=== PATIENT | female | born 1950 | race Caucasian/White ===

== ENCOUNTER → 2016-04-29 | Outpatient (CLI) | payer SELFPAY ==
[~2016-04-29] MED LIST: BIPAP INH; BREO ELLIPTA 11 EACH INH; CELEXA40 MG PO; CRESTOR40 MG PO; FUROSEMIDE80 MG PO; GLUCOPHAGE1000 MG PO; HUMULIN R500 UNIT/1 SUB-Q; HYDRALAZINE HCL10 MG PO; INCRUSE ELLI62.5 MCG INH; IPRAT-ALBUT 0.5-3 ML INH; LOPRESSOR25 MG PO; MIRAPEX1.5 MG PO; NORVASC10 MG PO; PLAVIX75 MG PO; PRILOSEC20 MG PO; PROAIR HFA8.5 GM INH; TRICOR145 MG PO; TYLENOL EXTRA500 MG PO; VIRTUSSIN AC L118 ML PO; VITAMIN D2000 UNIT PO; ZESTRIL40 MG PO; [UNRECOGNIZED DRUG - OTHER] PO
--- NOTE | ~2016-04-29 | PUL ---
PATIENT'S NAME: YASSINE COX [place] AGE: 65 Y [address] ROOM: [place] [id number] LOCATION: [facility] ADMIT DATE: 04/29/2016 Pulmonary DISCHARGE DATE: FAMILY PHYSICIAN: Naty Trejo MD ATTENDING PHYSICIAN: BOB WISE NAME OF PROCEDURE: Pulmonary Function Test DATE OF PROCEDURE: April 29, 2016 TECH: ADITI Mosley REASON FOR EXAM: COPD RESULTS: 1. FVC was 2.68 liters which is 78% of predicted and low, FEV1 was 1.86 liters which is 70% of predicted and low, and FEV1/FVC was 70% and normal. The flow volume curve reveals some airflow limitation and low lung volumes. After bronchodilator administration FVC increased to 2.84 liters which is a 6% increase and FEV1 increased to 1.96 liters which is a 5% increase. FEV1/FVC was 69%. 2. DLCO was 9 with an adjusted DLCO of 10.1 which is 40% of predicted and low. 3. Total lung capacity was 5.07 liters which is 96% of predicted and normal, and residual volume was 2.22 liters which is 109% of predicted and normal. PHYSICIAN INTERPRETATION: The patient has no airflow limitation as per ATS/ERS criteria and no significant bronchodilator response. Her diffusion capacity is moderately low. There is no evidence of restrictive lung disease. He has nonspecific reduction in FEV1 and FVC which can be seen in chronic airway disease. Clinical correlation is advised. MD CRYSTAL ÁLVAREZ/johnathon /[id number] dtt: 05/01/16 1322 , BOB WISE dtd: 05/01/16 1301
== END | disposition disaster alternative care site (69) ==
LOC: GRTH 11:00
DX: J44.9 Chronic obstructive pulmonary disease, unspecified (principal)

== ENCOUNTER → 2016-05-02 | Outpatient (CLI) | payer SELFPAY | END | disposition disaster alternative care site (69) | LOC: GDIC 12:20 | DX: E11.8 Type 2 diabetes mellitus with unspecified complications (principal) | CPT/HCPCS: G0108 ==